=== PATIENT | male | born 1990 | race American Indian/Alaskan Native ===

== ENCOUNTER 2017-01-04 10:38 | Emergency (ER) | payer OTHER ==
[2017-01-04 10:43] VITALS: BP 128/64; PULSE 70; TEMP 97.9; O2SAT 98; BMI 28.0
--- NOTE | 2017-01-04 11:02 | ED PDOC ---
HPI: CCC, URI, Sore Throat Time Seen by Provider: 01/04/17 10:47 Chief Complaint (Nursing): Cough, Cold, Congestion Chief Complaint (Provider): Cough, Cold, Congestion History Per: Patient History/Exam Limitations: no limitations Onset/Duration Of Symptoms: Days Current Symptoms Are (Timing): Still Present Location Of Pain: Throat Sick Contacts (Context): None Associated Symptoms: denies: Fever, Chills, Cough Ear Symptoms: Bilateral: None Severity: Mild Past Medical History Reviewed: Historical Data, Nursing Documentation, Vital Signs Vital Signs: Last Vital Signs Temp 97.9 F 01/04/17 10:42 Pulse 70 01/04/17 10:42 Resp BP 128/64 01/04/17 10:42 Pulse Ox 98 01/04/17 11:05 - Medical History PMH: No Chronic Diseases - Surgical History Surgical History: No Surg Hx - Family History Family History: States: No Known Family Hx - Living Arrangements Living Arrangements: With Family - Home Medications Home Medications: Ambulatory Orders Medication Instructions Recorded Ondansetron ODT [Zofran ODT] 4 mg PO TID #21 odt 05/09/16 Azithromycin [Zithromax] 250 mg PO DAILY #6 tab 01/04/17 - Allergies Allergies/Adverse Reactions: Allergies Allergy/AdvReac Type Severity Reaction Status Date / Time No Known Allergies Allergy Verified 05/09/16 13:35 Review of Systems ROS Statement: Except As Marked, All Systems Reviewed And Found Negative Constitutional: Negative for: Fever, Chills ENT: Positive for: Throat Pain. Negative for: Ear Pain Respiratory: Negative for: Cough Genitourinary Male: Positive for: Penile Discharge. Negative for: Dysuria Musculoskeletal: Negative for: Neck Pain, Back Pain Physical Exam - Reviewed Nursing Documentation Reviewed: Yes Vital Signs Reviewed: Yes - Physical Exam Appears: Positive for: Non-toxic, No Acute Distress Skin: Positive for: Normal Color, Warm. Negative for: Rash Eye Exam: Positive for: Normal appearance ENT: Positive for: Normal ENT Inspection, Pharyngeal Erythema. Negative for: Tonsillar Exudate, Tonsillar Swelling Neck: Positive for: Normal, Painless ROM, Supple Cardiovascular/Chest: Positive for: Regular Rate, Rhythm. Negative for: Murmur Respiratory: Positive for: Normal Breath Sounds. Negative for: Respiratory Distress Male Genital Exam: Positive for: normal genitalia. Negative for: hernia mass, lesions, testicular tenderness (R), testicular tenderness (L), urethral discharge Back: Positive for: Normal Inspection. Negative for: L CVA Tenderness, R CVA Tenderness Extremity: Positive for: Normal ROM Neurologic/Psych: Positive for: Alert, Oriented - ECG O2 Sat by Pulse Oximetry: 98 (RA) Pulse Ox Interpretation: Normal Medical Decision Making Medical Decision Making: Time: 1045 Initial impression: Viral illness r/o strep. R/O STD Initial plan: -- Chlamydia/ GC RNA -- Rapid strep Scribe Attestation: Documented by Cornelia Moctezuma acting as a scribe for Fritz Herrera MD MD Scribe Attestation: All medical record entries made by the Scribe were at my direction and personally dictated by me. I have reviewed the chart and agree that the record accurately reflects my personal performance of the history, physical exam, medical decision making, and the department course for this patient. I have also personally directed, reviewed, and agree with the discharge instructions and disposition. Disposition - Clinical Impression Clinical Impression: Pharyngitis - Patient ED Disposition Is Patient to be Admitted: No Counseled Patient/Family Regarding: Studies Performed, Diagnosis, Need For Followup, Rx Given - Disposition Referrals: [facility] [Outside] Disposition: Routine/Home Disposition Time: 11:09 Condition: FAIR Prescriptions: Azithromycin [Zithromax] 250 mg PO DAILY #6 tab Instructions: Pharyngitis (ED)
== END 2017-01-04 12:21 | disposition home or self-care (01) ==
LOC: H.ER 10:38
DX: J02.9 Acute pharyngitis, unspecified (principal)

== ENCOUNTER 2017-03-17 11:54 | Emergency (ER) | payer OTHER ==
[2017-03-17 11:55] VITALS: BMI 28.0
[2017-03-17 12:23] VITALS: BP 108/63; PULSE 60; RESP 18; TEMP 98; O2SAT 99
[2017-03-17] MEDS ORDERED: cefTRIAXone (Rocephin) 250 mg Inj IM STA (13:59)
[2017-03-17] MEDS ORDERED: Sterile Water 10 ML IV ONE (14:08)
[2017-03-17] MEDS ORDERED: cefTRIAXone (Rocephin) 250 mg Inj ONE (14:09)
--- NOTE | 2017-03-17 14:11 | ED PDOC ---
HPI: Male Pain Time Seen by Provider: 03/17/17 12:55 Chief Complaint (Nursing): Groin Pain Chief Complaint (Provider): Genital discharge History Per: Patient History/Exam Limitations: no limitations Onset/Duration Of Symptoms: Days (2) Current Symptoms Are (Timing): Still Present Additional Complaint(s): Shirley Musa is a 26 y/o male presenting to the ER on 03/17/2017 with complaints of clear discharge from his penis for two days. Patient reports he was evaluated in this ED for similar symptoms in the past. Upon discharge, he was prescribed antibiotics and states symptoms went away after. Prior charts were reviewed, which showed all of his cultures coming back negative. Patient prefers to have treatment done today, prompting him to seek medical evaluation. Past Medical History Reviewed: Historical Data, Nursing Documentation, Vital Signs Vital Signs: Last Vital Signs Temp 98 F 03/17/17 12:21 Pulse 60 03/17/17 12:21 Resp 18 03/17/17 12:21 BP 108/63 03/17/17 12:21 Pulse Ox 99 03/17/17 12:21 - Medical History PMH: No Chronic Diseases - Surgical History Surgical History: No Surg Hx - Family History Family History: States: Unknown Family Hx - Social History Current smoker - smoking cessation education provided: Yes Alcohol: Occasional Drugs: Denies - Home Medications Home Medications: Ambulatory Orders Medication Instructions Recorded Ondansetron ODT [Zofran ODT] 4 mg PO TID #21 odt 05/09/16 Azithromycin [Zithromax] 250 mg PO DAILY #6 tab 01/04/17 - Allergies Allergies/Adverse Reactions: Allergies Allergy/AdvReac Type Severity Reaction Status Date / Time No Known Allergies Allergy Verified 05/09/16 13:35 Review of Systems ROS Statement: Except As Marked, All Systems Reviewed And Found Negative Constitutional: Negative for: Fever Genitourinary Male: Positive for: Penile Discharge. Negative for: Dysuria, Frequency, Incontinence Physical Exam - Reviewed Nursing Documentation Reviewed: Yes Vital Signs Reviewed: Yes - Physical Exam Appears: Positive for: Non-toxic, No Acute Distress Head Exam: Positive for: ATRAUMATIC, NORMOCEPHALIC Skin: Positive for: Normal Color. Negative for: Rash Eye Exam: Positive for: Normal appearance Neck: Positive for: Normal Male Genital Exam: Positive for: normal genitalia, urethral discharge (small amount of clear discharge noted ) Extremity: Positive for: Normal ROM. Negative for: Deformity, Swelling Neurologic/Psych: Positive for: Alert, Oriented. Negative for: Motor/Sensory Deficits - ECG O2 Sat by Pulse Oximetry: 99 Medical Decision Making Medical Decision Makin:55 Initial Impression- 26 y/o male with penile discharge. Initial Plan- * Chlamydia/ GC * Azithromycin 1,000 mg PO * Rocephin 250 mg IM * Urine Cx Documented by Grant Jones, acting as a scribe for Bailey Castillo PA-C All medical record entries made by the Scribe were at my direction and personally dictated by me. I have reviewed the chart and agree that the record accurately reflects my personal performance of the history, physical exam, medical decision making, and the department course for this patient. I have also personally directed, reviewed, and agree with the discharge instructions and disposition. Disposition - Clinical Impression Clinical Impression: Penile discharge - Disposition Referrals: Geneva Davenport MD [Medical Doctor] - Disposition: Routine/Home Disposition Time: 14:06 Condition: STABLE Additional Instructions: Please follow-up with urologist. Instructions: Safe Sex (ED)
== END 2017-03-17 14:27 | disposition home or self-care (01) ==
LOC: H.ER 11:54
DX: R36.9 Urethral discharge, unspecified (principal)

== ENCOUNTER 2018-03-02 14:12 | Emergency (ER) | payer MEDICAID, OTHER ==
[2018-03-02 14:12] VITALS: BMI 28.0
--- NOTE | 2018-03-02 16:06 | ED PDOC ---
HPI: CCC, URI, Sore Throat Time Seen by Provider: 03/02/18 14:26 Chief Complaint (Nursing): Cough, Cold, Congestion Chief Complaint (Provider): cough and nasal congestion History Per: Patient History/Exam Limitations: no limitations Have you had recent travel within the past 21 days to any of the following countries: [place], [place], [place] or [place]?: No Onset/Duration Of Symptoms: Days (x1 week) Current Symptoms Are (Timing): Still Present Sick Contacts (Context): None Associated Symptoms: Sore Throat (discomfort), Cough (wet), Nasal Congestion. denies: Fever, Chills, Nausea, Vomiting, Diarrhea Ear Symptoms: Bilateral: None Additional Complaint(s): Shirley Musa is a 27 year old male, with no significant past medical history, who presents to the emergency department for evaluation of wet cough and nasal congestion onset for the past week. Patient states he has been taking OTC medications including Mucinex and Robitussin with no relief. He did not take medications prior to arrival today. Of note, patient reports throat discomfort for the last two days secondary to cough, but denies any fever, chills, ear pain , chest pain, abdominal pain, nausea, vomit, diarrhea, sick contacts or recent travel. No further medical complaints. PMD: Raffaele Aceves Past Medical History Reviewed: Historical Data, Nursing Documentation, Vital Signs Vital Signs: Last Vital Signs Temp 98.5 F 03/02/18 17:18 Pulse 74 03/02/18 17:18 Resp 15 03/02/18 17:18 BP 138/71 03/02/18 17:18 Pulse Ox 100 03/02/18 17:34 - Medical History PMH: No Chronic Diseases - Surgical History Surgical History: No Surg Hx - Family History Family History: States: Unknown Family Hx - Social History Current smoker - smoking cessation education provided: Yes ( <10 cigarettes daily) Alcohol: Social Drugs: Denies - Home Medications Home Medications: Ambulatory Orders Medication Instructions Recorded Ondansetron ODT [Zofran ODT] 4 mg PO TID #21 odt 05/09/16 Azithromycin [Zithromax] 250 mg PO DAILY #6 tab 01/04/17 Promethazine/Dextromethorphan 5 ml PO Q6 PRN #150 ml 03/02/18 [Promethazine-Dm Syrup] Pseudoephedrine HCl [Sudafed 12 1 tab PO BID PRN #14 tablet.er 03/02/18 Hour] - Allergies Allergies/Adverse Reactions: Allergies Allergy/AdvReac Type Severity Reaction Status Date / Time No Known Allergies Allergy Verified 05/09/16 13:35 Review of Systems ROS Statement: Except As Marked, All Systems Reviewed And Found Negative Constitutional: Negative for: Fever, Chills ENT: Positive for: Nose Congestion, Throat Pain (discomfort). Negative for: Ear Pain Cardiovascular: Negative for: Chest Pain Respiratory: Positive for: Cough. Negative for: Shortness of Breath Gastrointestinal: Negative for: Nausea, Vomiting, Abdominal Pain, Diarrhea Physical Exam - Reviewed Nursing Documentation Reviewed: Yes Vital Signs Reviewed: Yes - Physical Exam Comments: GENERAL APPEARANCE: Patient is awake, alert, oriented x 3, in no acute distress. Resting comfortably. SKIN: Warm, dry; (-) cyanosis. EYES: (-) conjunctival pallor. ENMT: Mucous membranes moist. Airway patent: (-) stridor. Pharynx: (-) swelling, (+) faint erythema, (-) exudate. TMs: nonbulging and nonerythematous bilaterally. Nares: patent. NECK: Supple, FROM (-) tenderness, (-) stiffness, (-) lymphadenopathy. CHEST AND RESPIRATORY: (-) rhonchi, (-) rales, (-) wheezes, (-) pleural rub (-) accessory muscle use; breath sounds equal bilaterally. Respirations even and nonlabored, speaking in full sentences. HEART AND CARDIOVASCULAR: (-) irregularity; (-) murmur, (-) gallop. ABDOMEN AND GI: Soft; (-) tenderness (-) distention (-) guarding. EXTREMITIES: (-) deformity; (-) edema. NEURO AND PSYCH: Mental status as above. Cranial nerves grossly intact; strength symmetric. Gait steady, speech clear. - ECG O2 Sat by Pulse Oximetry: 100 (RA) Pulse Ox Interpretation: Normal Medical Decision Making Medical Decision Making: Time: 14:26 Initial Impression: Cough and congestion likely viral URI Initial Plan: --Chest two views (PA/LAT) [RAD] --Tessalon Perles 100 mg PO --Throat culture --Rapid Strep Group A Antigen --Reevaluation 1700 Rapid Strep Negative. CXRreviewed, radiology report follows HISTORY: cough >1week COMPARISON: No prior. TECHNIQUE: Chest PA and lateral FINDINGS: LUNGS: No active pulmonary disease. PLEURA: No significant pleural effusion identified. No pneumothorax apparent. CARDIOVASCULAR: Normal. OSSEOUS STRUCTURES: No significant abnormalities. VISUALIZED UPPER ABDOMEN: Normal. OTHER FINDINGS: None. IMPRESSION: No active disease. On re-evaluation, patient reports improvement of symptoms. On exam, patient remains AAOx3, in no acute distress. On exam, neck is supple, lungs CTA, cardiac RRR, abdomen is soft and non-tender, neuro exam shows no focal findings. VSS, stable for discharge. Diagnostic results d/w the patient in great detail. Dx of cough, nasal congestion, viral URI d/w the patient. Based on history, exam and diagnostic results plan will be for discharge and outpatient follow up. Advised to follow up with primary care physician in 1-2 days without fail. Advised to take medication as prescribed. Return to the emergency room at any time for any new or worsening symptoms. Patient states he fully agrees with and understands discharge instructions. States that he agrees with the plan and disposition. Verbalized and repeated discharge instructions and plan. I have given the patient opportunity to ask any additional questions. Scribe Attestation: Documented by Abdifatah Sheth, acting as a scribe for Alyssia Guerrero PA-C Provider Scribe Attestation: All medical record entries made by the Scribe were at my direction and personally dictated by me. I have reviewed the chart and agree that the record accurately reflects my personal performance of the history, physical exam, medical decision making, and the department course for this patient. I have also personally directed, reviewed, and agree with the discharge instructions and disposition. Disposition - Clinical Impression Clinical Impression: Cough, Nasal congestion, URI (upper respiratory infection) - Patient ED Disposition Is Patient to be Admitted: No Counseled Patient/Family Regarding: Studies Performed, Diagnosis, Need For Followup, Rx Given - Disposition Referrals: Raffaele Aceves MD [Family Provider] - Disposition: Routine/Home Disposition Time: 17:09 Condition: STABLE Additional Instructions: FOLLOW UP WITH PMD IN 1-2 DAYS WITHOUT FAIL. RETURN TO ED WITH ANY NEW OR WORSENING SYMPTOMS. TAKE MEDICATIONS PRESCRIBED FOR SYMPTOMS NEEDED. Prescriptions: Promethazine/Dextromethorphan [Promethazine-Dm Syrup] 5 ml PO Q6 PRN #150 ml PRN Reason: Cough Pseudoephedrine HCl [Sudafed 12 Hour] 1 tab PO BID PRN #14 tablet.er PRN Reason: CONGESTION Instructions: Cough in Adults, Viral Upper Respiratory Infection, Adult (DC), Cough, Runny Nose, and the Common Cold Forms: [facility] (Portuguese) Print Language: THAI - POA Present On Arrival: None Results - Lab Results Lab Results: 03/02/18 15:10 Grp A Beta Strep Ag Negative
[2018-03-02 17:19] VITALS: BP 138/71; PULSE 74; RESP 15; TEMP 98.5
--- NOTE | 2018-03-02 17:31 | RAD ---
HISTORY: cough >1week COMPARISON: No prior. TECHNIQUE: Chest PA and lateral FINDINGS: LUNGS: No active pulmonary disease. PLEURA: No significant pleural effusion identified. No pneumothorax apparent. CARDIOVASCULAR: Normal. OSSEOUS STRUCTURES: No significant abnormalities. VISUALIZED UPPER ABDOMEN: Normal. OTHER FINDINGS: None. IMPRESSION: No active disease.
[2018-03-02 17:35] VITALS: O2SAT 100
== END 2018-03-02 17:18 | disposition home or self-care (01) ==
LOC: H.ER 14:12
DX: R05 Cough (principal); J06.9 Acute upper respiratory infection, unspecified; R09.81 Nasal congestion